=== PATIENT | male | born 1945 | race Caucasian/White ===

== ENCOUNTER → 2018-01-03 | Outpatient (CLI) | payer MEDICARE, OTHER ==
[~2018-01-03] MED LIST: ALPR-429 PO; ALPR-448 PO; ATOR10TA65 PO; AUG875 PO; CELE-1 PO; DEXL60CA6 PO; DIV500ER PO; ESCI10TA8 PO; ESCI20TA8 PO; ESCI5TAB3 PO; ESOM40CA42 PO; GABA-549 PO; HYDR-385 PO; HYDR-389 PO; HYDR-393 PO; INDO-1 PO; LACO50TA5 PO; LAMO100T56 PO; LEV125 PO; LEVO-3 PO; LEVO100T95 PO; MELO-205 PO; METH4TAB66 PO; NYST15CR33 TP; OMEP40CA79 PO; PANT40TA65 PO; PRED20TA6 PO; SERT-1 PO; SERT-181 PO; SERT-184 PO; TRAZ-156 PO
== END ==
LOC: LAB 15:10
PROVIDERS: ATTEND Internal Medicine Endocrinology, Diabetes & Metabolism
DX: E03.9 Hypothyroidism, unspecified (principal)
CPT/HCPCS: 36415; 84443

== ENCOUNTER → 2018-08-08 | Outpatient (CLI) | payer MEDICARE, OTHER ==
[~2018-08-08] MED LIST changes: +ASCO-191 PO; +CHOL500025 PO; +CRAN500C11 PO; +DIV250ER PO; +DULO20CA3 PO; +GLUC-125 PO; -INDO-1 PO; +INDO-21 PO; +MULT-1335 PO; +RANI-318 PO; +SAW1CAPS PO; -TRAZ-156 PO; +TRAZ50TA34 PO; +UBID100C9 PO; +VITA1CAP46 PO
[2018-08-08 17:27] LABS: PLATELET COUNT, AUTOMATED 164 K/uL (150-450)
== END ==
LOC: LAB 17:05
PROVIDERS: ATTEND Nurse Practitioner Primary Care
DX: R10.31 Right lower quadrant pain (principal)
CPT/HCPCS: 36415; 82040; 82247; 82310; 82374; 82435; 82565; 82947; 84075; 84132; 84155; 84295; 84450; 84460; 84520; 85025

== ENCOUNTER → 2018-08-20 | Outpatient (CLI) | payer MEDICARE, OTHER | LOC: LAB 11:31 | PROVIDERS: ATTEND Nurse Practitioner Primary Care | DX: R10.31 Right lower quadrant pain (principal) | CPT/HCPCS: 81001 ==

== ENCOUNTER → 2019-01-02 | Outpatient (CLI) | payer MEDICARE, OTHER ==
[~2019-01-02] MED LIST changes: +ABILIF5PT PO
[2019-01-02 16:38] LABS: PLATELET COUNT, AUTOMATED 185 K/uL (150-450)
== END ==
LOC: LAB 16:21
PROVIDERS: ATTEND Family Medicine
DX: E03.9 Hypothyroidism, unspecified (principal)
CPT/HCPCS: 36415; 82310; 82374; 82435; 82565; 82947; 84132; 84295; 84443; 84520; 85025